=== PATIENT | female | born 1980 ===

== ENCOUNTER 2016-07-25 14:17 | Inpatient (IN) | payer MEDICAID ==
[2016-07-25 14:56] VITALS: BMI 26.8
[2016-07-25] MEDS ORDERED: Lactated Ringer's 1,000 ML IV SCH (15:00)
[2016-07-25] MEDS ORDERED: Oxytocin 20 units in LR 2,000 ML IV ONE (15:02)
[2016-07-25 15:37] LABS: CHLORIDE 99 mmol/L (98-107); SODIUM 134 mmol/L (132-148)
[2016-07-25 15:38] LABS: POTASSIUM 3.5 mmol/L (3.6-5.2)
[2016-07-25 15:40] LABS: ALB/GLOB RATIO 0.9 (1.0-2.1); ALKALINE PHOSPHATASE 193 U/L (38-126); AST/SGOT 24 U/L (14-36); BLOOD UREA NITROGEN 10 mg/dL (7-17); CARBON DIOXIDE 21 mmol/L (22-30); GFR AFRICAN-AMERICAN > 60; TOTAL PROTEIN 7.4 g/dL (6.3-8.3)
[2016-07-25 15:41] LABS: ALT/SGPT 32 U/L (9-52); CALCIUM 8.4 mg/dl (8.6-10.4); GLUCOSE,RANDOM 84 mg/dL (65-105)
[2016-07-25 15:46] LABS: BASO % 0.3 % (0.0-2.0); HEMATOCRIT 41.4 % (34.0-47.0); LYMPH # 0.8 K/uL (1.0-4.3); MEAN CORPUSCULAR HEMOGLOBIN 26.5 pg (27.0-31.0); MEAN CORPUSCULAR HGB CONC 32.7 g/dL (33.0-37.0); MEAN PLATELET VOLUME 9.7 fL (7.2-11.7); MONO # 0.2 K/uL (0.0-0.8); MONO % 1.6 % (0.0-10.0); PLATELET COUNT 183 K/uL (130-400); RED CELL DISTRIBUTION WIDTH 13.4 % (11.5-14.5); WHITE BLOOD COUNT 13.9 K/uL (4.8-10.8)
[2016-07-25 15:53] LABS: NEUTROPHIL 95 % (50-75); TOTAL CELLS COUNTED 100
[2016-07-25] MEDS ORDERED: Benzocaine/Menthol 20%-0.5% Topical Spray (60 ml) TOP PRN (17:56)
[2016-07-25] MEDS ORDERED: Oxycodone/Acetaminophen 5/325 mg Tab PO PRN (17:56)
--- NOTE | 2016-07-25 18:08 | OBDS ---
DELIVERY PERSONNEL Delivery Doctor: Darwin Stevenson MD [employer] Farmworker: DianakatiuskaMarcocinthia RN MATERNAL INFORMATION Delivery Anesthesia: None Medications in Delivery: pitocin 20 Estimated Blood Loss (ml): 150 Placenta Cultured: No Maternal Complications: None Provider Comments: of a male infant.body and shoulders delivered without difficulty.Cord clamped and cut.cord blood collected.placenta spontanously delivered.first degree vaginal laceration repaire d with 2-0 chromic.Fundus firm.patient stable LABOR SUMMARY EDC: 08/07/2016 00:00 No. Babies in Womb: 1 Attempted: No Labor Anesthesia: None LABOR INFORMATION Onset of Labor: 07/25/2016 07:00 Complete Dilatation: 07/25/2016 14:18 Oxytocin: N/A Group B Beta Strep: Positive Steroids Given: None MEMBRANES Membranes Rupture Method: Spontaneous Rupture of Membranes: 07/25/2016 14:18 Length of Rupture (hrs): 0.02 Amniotic Fluid Color: Clear Amniotic Fluid Amount: Moderate Amniotic Fluid Odor: Normal STAGES OF LABOR Stage 1 hrs: 7 Stage 1 min: 18 Stage 2 hrs: 0 Stage 2 min: 1 Stage 3 hrs: 0 Stage 3 min: 11 Total Time in Labor hrs: 7 Total Time in Labor min: 30 VAGINAL DELIVERY Episiotomy: None Laceration Extension: First Degree Laceration Type: Vaginal Laceration Repair Note: first degree vaginal laceration repaired with 2-0 chromic Initial Vag Sponge Count: 10 Final Vag Sponge Count: 10 Initial Vag Sharps Count: 1 Final Vag Sharps Count: 1 Sponge Count Correct: Yes Sharps Count Correct: Yes BABY A INFORMATION Infant Delivery Date/Time: 07/25/2016 14:19 Method of Delivery: Vaginal Born in Route : No : N/A Forceps: N/A Vacuum Extraction: N/A Shoulder Dystocia : No SHOULDER DYSTOCIA BABY A Delivery Date/Time: 07/25/2016 14:19 PRESENTATION/POSITION BABY A Presentation: Cephalic Cephalic Presentation: Vertex Breech Presentation: N/A PLACENTA INFORMATION BABY A Placenta Delivery Time : 07/25/2016 14:30 Placenta Method of Delivery: Spontaneous Placenta Status: Delivered SCORES BABY A Heart Rate 1 min: >100 bpm Resp Effort 1 min: Good Cry Reflex Irritability 1 min: Cough or Sneeze or Pulls Away Muscle Tone 1 min: Active Motion Color 1 min: Body [place], Extremities Blue Resuscitation Effort 1 min: Tactile Stimulation SCORE 1 MIN: 9 Heart Rate 5 min: >100 bpm Resp Effort 5 min: Good Cry Reflex Irritability 5 min: Cough or Sneeze or Pulls Away Muscle Tone 5 min: Active Motion Color 5 min: Body [place], Extremities Blue SCORE 5 MIN: 9 INFANT INFORMATION BABY A Gestational Age at Delivery: 38.0 Gestational Status: Term Outcome : Liveborn Infant Condition : Stable Infant Sex: Male IDENTIFICATION/MEDS BABY A ID Band Number: [id number] ID Band Location: Left Leg; Left Arm Sensor Applied: Yes Sensor Number: [id number] Sensor Location : Cord Clamp WEIGHT/LENGTH BABY A Birthweight (gms): 3100 Weight (lb): 6 Weight (oz): 13 Infant Length Inches: 19.50 Infant Length cms: 49.5 CORD INFORMATION BABY A No. Cord Vessels: 3 Nuchal Cord : N/A Cord Blood Taken: No Suction: Mouth; Nose
--- NOTE | 2016-07-25 18:14 | OBHP ---
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 -admit -see orders Pelvic Type - PN: Adequate Extremities - PN: Normal Abdomen - PN: Normal Back - PN: Normal Lungs - PN: Normal Heart - PN: Normal Neurologic - PN: Normal General - PN: Normal Gestation - Est Wks by US: 38.1 IP Hx Assessment: The History has been Reviewed and is Current EGA AdmitDate IP: 38.1 Vital Signs Provider: Reviewed IP Chief Complaint: Uterine contractions Dilatation, Provider: 10 Effacement, Provider: 100 Genitourinary Exam: Normal DTRs - PN: Normal
--- NOTE | 2016-07-26 07:33 | OBPPN ---
Datetime: 07/26/2016 07:31 PP Pain Prov: Within normal limits PP Nausea Prov: Denies PP Flatus Prov: Yes PP Abdomen/Uterus Prov: Normal PP Lochia Prov: Normal PP Extremities Prov: Normal PP Comments Phys Exam Prov: fudus below umb ext mild edema,no calf ten PP Impression Prov: Normal progression PP Plan Prov: Continue present management PP Progress Note Prov: pt was seen at bed side, pain under control,no n/v, tolerating deit,voiding,m in ocha, flatuas+ ppd#1 s/p cbc reg deit encourage ambulation cont pp care Vital Signs Provider PP: Within Normal Limits
[2016-07-26] MEDS: Multiple Vitamins Tab PO SCH (09:41)
[2016-07-27] MEDS ORDERED: Influenza Virus Vaccine 45 mcg/0.5 ml Syr IM ONE (07:19)
[2016-07-27 09:03] LABS: BASO % 0.3 % (0.0-2.0); EOS # 0.1 K/uL (0.0-0.7); EOS % 1.2 % (0.0-4.0); HEMATOCRIT 35.5 % (34.0-47.0); LYMPH # 1.9 K/uL (1.0-4.3); LYMPH % 24.7 % (20.0-40.0); MEAN CELL VOLUME 81.5 fL (81.0-99.0); MEAN CORPUSCULAR HEMOGLOBIN 26.2 pg (27.0-31.0); MEAN CORPUSCULAR HGB CONC 32.2 g/dL (33.0-37.0); MEAN PLATELET VOLUME 8.7 fL (7.2-11.7); MONO # 0.3 K/uL (0.0-0.8); MONO % 3.6 % (0.0-10.0); NRBC % 0.1 % (0.0-2.0); RED CELL DISTRIBUTION WIDTH 13.6 % (11.5-14.5); WHITE BLOOD COUNT 7.7 K/uL (4.8-10.8)
[2016-07-27] MEDS: Multiple Vitamins Tab PO SCH (09:32)
[2016-07-27 10:15] VITALS: BP 103/70; PULSE 76; RESP 18; TEMP 97.5; O2SAT 99
--- NOTE | 2016-07-27 19:33 | OBPPN ---
Datetime: 07/27/2016 19:25 PP Pain Prov: Within normal limits PP Nausea Prov: Denies PP Flatus Prov: Yes PP BM Prov: No PP Breasts Prov: Normal PP Heart Prov: Normal PP Lungs Prov: Normal PP Abdomen/Uterus Prov: Normal PP Lochia Prov: Normal PP Vulva/Perineum Prov: Normal PP CVA Tenderness Prov: Normal PP Extremities Prov: Normal PP C/S Incision Prov: Not Applicable PP Progress Prov: Normal PP Comments Phys Exam Prov: Skin: warm, dry, intact HEENT: full ROM Breasts: cracked right nipple; no masses Lungs: CTA bilaterally Cardiac: RRR, normal S1, S2 Abdomen: Soft, non distended; (+) BS. Fundus firm, mobile, 18 weeks. minimal lochia rubra : no masses Extremities: no calf tenderness, cyanosis or edema All other systems reviewed and are negative PP Impression Prov: Normal progression PP Plan Prov: Discharge PP Progress Note Prov: Patient seen and evaluated earlier in the morning; received in room 453 finis jamie breakfast. Breast- and now more bottlefeeding due to cracked right nipple and sore nipples bilat erally. Ambulating and voiding witout difficulty. P.E.: as above. Small, in NAD. Awake, alert, oriented to time, person and place. Pleasant and coop erative. - PPD#2 H/H 11.4/35.5 Assessment: PPD#2 35 yo P4, S/P . Afebrile. vital signs stable. Desires IUD for contraception. Clinically stable. Plan: 1) discharge home 2) see full discharge instructions Vital Signs Provider PP: Reviewed; Within Normal Limits
--- NOTE | 2016-07-27 19:35 | OBDCSUM ---
Datetime: 07/27/2016 10:31 Discharged to, Provider: Home Follow up at, Provider: [facility] Disch Instr Activity: Normal activity; May be up to bathroom; May be up for meals; May Shower Disch Instr Diet: Regular Discharge Diet restrict Prov: none Discharge Diagnosis, Provider: Term Delivered Discharge Time: 07/27/2016 10:32 Follow up in weeks, Provider: 6 weeks Disch Referrals: None Contraception discussed, Prov: Yes Disch Activity Restrictions: No sexual activity; Nothing in vagina - Cisco, tampons, douche Discharge Diagnosis Prov Other: Advanced maternal age Contraception counseling Contraception after Delivery: IUD
== END 2016-07-27 16:43 | disposition home or self-care (01) | DRG 373 ==
LOC: C.EROB 14:17 → C.4D 14:18 → C.4M 16:40
PROVIDERS: ADMIT Student in an Organized Health Care Education/Training Program; ATTEND Student in an Organized Health Care Education/Training Program
PROC: 10E0XZZ Delivery of Products of Conception, External Approach (ICD-10-PCS; principal; 2016-07-25)
PROC: 0HQ9XZZ Repair Perineum Skin, External Approach (ICD-10-PCS; 2016-07-25)
DX: O99.824 Streptococcus B carrier state complicating childbirth (principal); O09.523 Supervision of elderly multigravida, third trimester; O70.0 First degree perineal laceration during delivery; Z37.0 Single live birth; Z3A.38 38 weeks gestation of pregnancy

== ENCOUNTER 2017-10-06 02:09 | Inpatient (IN) | payer MEDICAID ==
[2017-10-06] MEDS ORDERED: Penicillin G 5 Million Unit Vial IVPB ONE ×2 (02:50→03:14)
--- NOTE | 2017-10-06 02:51 | OBHP ---
Datetime: 10/06/2017 02:46 IP Adm Impression: Term, intrauterine ; Active labor IP Admit Plan: Admit to unit; Initiate labor protocol Admit Comment, IP Provider: at 39=weeks came with c/o ctxs started at 10 pm, irrt 09/11, o vb, l of=fm obh 4 x pmh de med cpnv all nkda psh de dawn de ve /-2 a/p at 39+weeks in labor admit to l_d npo/ivf labs pain ma anticipate gbs prophyla Pelvic Type - PN: Adequate Extremities - PN: Normal Abdomen - PN: Normal Back - PN: Normal Breast - PN: Normal Lungs - PN: Normal Heart - PN: Normal Thyroid - PN: Normal Neurologic - PN: Normal HEENT - PN: Normal General - PN: Normal FHR - Baseline A Provider: 120 IP Hx Assessment: The History has been Reviewed and is Current EGA AdmitDate IP: 39.5 Vital Signs Provider: Reviewed; Within Normal Limits IP Chief Complaint: Uterine contractions NICHD Variability Prov Fetus A: Moderate 6-25bpm NICHD Accel Fetus A IP Provider: [id number] FHR Category Provider Fetus A: Category I Dilatation, Provider: 3 Effacement, Provider: 70 Station, Provider: -2 Genitourinary Exam: Normal DTRs - PN: Normal
[2017-10-06] MEDS ORDERED: Lactated Ringer's 1,000 ML IV SCH (03:00)
[2017-10-06 03:30] LABS: BASO % 0.1 % (0.0-2.0); EOS % 0.2 % (0.0-4.0); HEMOGLOBIN 11.3 g/dL (11.0-16.0); LYMPH # 1.7 K/uL (1.0-4.3); LYMPH % 20.6 % (20.0-40.0); MEAN CELL VOLUME 81.3 fL (81.0-99.0); MEAN CORPUSCULAR HEMOGLOBIN 27.1 pg (27.0-31.0); MEAN CORPUSCULAR HGB CONC 33.3 g/dL (33.0-37.0); MEAN PLATELET VOLUME 9.3 fL (7.2-11.7); MONO # 0.4 K/uL (0.0-0.8); MONO % 4.9 % (0.0-10.0); NEUT # 6.2 K/uL (1.8-7.0); NEUT % 74.2 % (50.0-75.0); RBC 4.17 Mil/uL (3.80-5.20); WHITE BLOOD COUNT 8.3 K/uL (4.8-10.8)
[2017-10-06 03:32] LABS: SQUAMOUS EPITHIAL 3 /hpf (0-5); URINE BILIRUBIN NEGATIVE (NEGATIVE); URINE BLOOD NEGATIVE (NEGATIVE); URINE CLARITY Clear (Clear); URINE COLOR Straw (YELLOW); URINE GLUCOSE (UA) NORMAL (Normal); URINE LEUKOCYTE ESTERASE NEG Leu/uL (Negative); URINE PROTEIN NEGATIVE (NEGATIVE); URINE UROBILINOGEN NORMAL mg/dL (0.2-1.0)
[2017-10-06 03:39] LABS: ALB/GLOB RATIO 1.1 (1.0-2.1); ALBUMIN 3.4 g/dL (3.5-5.0); ALT/SGPT 8 U/L (9-52); AST/SGOT 22 U/L (14-36); BLOOD UREA NITROGEN 8 mg/dL (7-17); CALCIUM 8.6 mg/dl (8.6-10.4); GFR AFRICAN-AMERICAN > 60; GFR NON-AFRICAN AMERICAN > 60
[2017-10-06] MEDS ORDERED: Lidocaine 2% MPF (5 ml) Inj ONE (07:31)
[2017-10-06] MEDS ORDERED: Oxytocin 30 UNIT 30 UNITS/500 ML BAG IV ONE (07:53)
[2017-10-06] MEDS ORDERED: Oxytocin 30 UNIT 30 UNITS/500 ML BAG IV PRN (07:59)
--- NOTE | 2017-10-06 15:18 | OBDS ---
DELIVERY PERSONNEL Delivery Doctor: Valery Sharma MD General Manager Food: Yoan Schwartz RN MATERNAL INFORMATION Delivery Anesthesia: None Medications in Delivery: pitocin 20units Estimated Blood Loss (ml): 200 Placenta Cultured: No Maternal Complications: None Provider Comments: intrapart dx: 39.5wks; labor pp dx: sme proced: ob:orossetos anesth: none findings: viable female 3210g 9_9 complic none ebl 200cc stefano: neon remained in br w/ pt. LABOR SUMMARY EDC: 10/08/2017 00:00 No. Babies in Womb: 1 Attempted: No Labor Anesthesia: None LABOR INFORMATION Reason for Induction: Not Applicable Onset of Labor: 10/06/2017 01:45 Complete Dilatation: 10/06/2017 08:40 Other Ripening Agents: n/a Oxytocin: Augmentation Group B Beta Strep: Positive Steroids Given: None Reason Steroids Not Administered: Not Applicable MEMBRANES Membranes Rupture Method: Spontaneous Rupture of Membranes: 10/06/2017 06:35 Length of Rupture (hrs): 2.17 Amniotic Fluid Color: Clear Amniotic Fluid Amount: Large Amniotic Fluid Odor: Normal STAGES OF LABOR Stage 1 hrs: 6 Stage 1 min: 55 Stage 2 hrs: 0 Stage 2 min: 5 Stage 3 hrs: 0 Stage 3 min: 6 Total Time in Labor hrs: 7 Total Time in Labor min: 6 VAGINAL DELIVERY Episiotomy: None Laceration Extension: N/A Laceration Type: None Laceration Repair: Not Applicable Initial Vag Sponge Count: 10 Final Vag Sponge Count: 10 Initial Vag Sharps Count: 0 Final Vag Sharps Count: 0 Sponge Count Correct: Yes Sharps Count Correct: N/A BABY A INFORMATION Infant Delivery Date/Time: 10/06/2017 08:45 Method of Delivery: Vaginal Born in Route : No : N/A Forceps: N/A Vacuum Extraction: N/A Shoulder Dystocia : No SHOULDER DYSTOCIA BABY A Delivery Date/Time: 10/06/2017 08:45 PRESENTATION/POSITION BABY A Presentation: Cephalic Cephalic Presentation: Vertex Vertex Position: Left Occipital Anterior Breech Presentation: N/A PLACENTA INFORMATION BABY A Placenta Delivery Time : 10/06/2017 08:51 Placenta Method of Delivery: Spontaneous Placenta Status: Delivered SCORES BABY A Heart Rate 1 min: >100 bpm Resp Effort 1 min: Good Cry Reflex Irritability 1 min: Cough or Sneeze or Pulls Away Muscle Tone 1 min: Active Motion Color 1 min: Body [place], Extremities Blue SCORE 1 MIN: 9 Heart Rate 5 min: >100 bpm Resp Effort 5 min: Good Cry Reflex Irritability 5 min: Cough or Sneeze or Pulls Away Muscle Tone 5 min: Active Motion Color 5 min: Body [place], Extremities Blue SCORE 5 MIN: 9 INFORMATION BABY A Gestational Age at Delivery: 39.5 Gestational Status: Term Infant Outcome : Liveborn Infant Condition : Stable Sex: Female IDENTIFICATION/MEDS BABY A ID Band Number: [id number] ID Band Location: Left Leg; Left Arm Sensor Applied: Yes Sensor Number: [id number] Sensor Location : Cord Clamp Vitamin K Given : Not Given Erythromycin Given: Not Given WEIGHT/LENGTH BABY A Birthweight (gms): 3210 Infant Weight (lb): 7 Infant Weight (oz): 1 Length Inches: 18.75 Infant Length cms: 47.6 CORD INFORMATION BABY A No. Cord Vessels: 3 Nuchal Cord : N/A Cord Blood Taken: Yes Suction: Mouth; Nose ASSESSMENT BABY A Infant Complications: None Physical Findings at Delivery: Within Normal Limits Infant Respirations: Appears Normal Remote Sensing Specialist/ALS Called : No Care By: Emma Simmons RN/Sherri CONTI Transferred To: Remains with Mother
[2017-10-07 08:02] LABS: BASO # 0.1 K/uL (0.0-0.2); BASO % 0.6 % (0.0-2.0); EOS # 0.1 K/uL (0.0-0.7); EOS % 0.8 % (0.0-4.0); LYMPH % 22.3 % (20.0-40.0); MEAN CELL VOLUME 81.3 fL (81.0-99.0); MEAN CORPUSCULAR HEMOGLOBIN 28.5 pg (27.0-31.0); MEAN CORPUSCULAR HGB CONC 35.1 g/dL (33.0-37.0); MEAN PLATELET VOLUME 9.8 fL (7.2-11.7); MONO # 0.4 K/uL (0.0-0.8); MONO % 4.6 % (0.0-10.0); NEUT # 6.4 K/uL (1.8-7.0); NEUT % 71.7 % (50.0-75.0); NRBC % 0.1 % (0.0-2.0); RBC 3.85 Mil/uL (3.80-5.20); WHITE BLOOD COUNT 8.9 K/uL (4.8-10.8)
--- NOTE | 2017-10-07 09:04 | OBPPN ---
Datetime: 10/07/2017 08:55 PP Pain Prov: Within normal limits PP Nausea Prov: Denies PP Flatus Prov: Yes PP Breasts Prov: Normal PP Heart Prov: Normal PP Lungs Prov: Normal PP Abdomen/Uterus Prov: Normal PP Lochia Prov: Normal PP Vulva/Perineum Prov: Normal PP CVA Tenderness Prov: Normal PP Extremities Prov: Normal PP Comments Phys Exam Prov: Fundus firm above the umbilicus PP Impression Prov: Normal progression PP Plan Prov: Continue present management PP Progress Note Prov: PT is doing well. Currently no compalints at this time. Breast feeding. Lochi a minimal. PE: fundus firm, no edema B/L. A/P: PPD#1 1) VSS: Afebrile. 2) Breast feeding/female. 3) Routine PP care. IP PP Procedures: None Vital Signs Provider PP: Reviewed; Within Normal Limits
--- NOTE | 2017-10-08 08:32 | OBDCSUM ---
Datetime: 10/08/2017 08:29 Discharged to, Provider: Home Follow up at, Provider: [facility] Disch Instr Activity: Normal activity; May Shower Disch Instr Diet: Regular Discharge Instructions, Provider: Routine instructions given Discharge Diagnosis, Provider: Term Delivered Discharge Time: 10/08/2017 08:29 Follow up in weeks, Provider: 4-6wk Discharge Instruct Comment, Prov: pp Contraception after Delivery: Undecided
[2017-10-08 09:10] VITALS: BP 117/70; PULSE 68; RESP 18; TEMP 97.4; O2SAT 98
== END 2017-10-08 14:42 | disposition home or self-care (01) | DRG 373 ==
LOC: C.EROB 02:09 → C.4D 02:48 → C.4M 10:09
PROVIDERS: ADMIT Obstetrics & Gynecology; ATTEND Obstetrics & Gynecology
PROC: 10E0XZZ Delivery of Products of Conception, External Approach (ICD-10-PCS; principal; 2017-10-06)
DX: O99.824 Streptococcus B carrier state complicating childbirth (principal); Z37.0 Single live birth